=== PATIENT | male | born 1960 | race Caucasian/White ===

== ENCOUNTER 2022-03-10 11:20 | Emergency (ER) | payer OTHER ==
[~2022-03-10 11:20] MED LIST: ALLOPURINOL100 MG PO; OMEPRAZOLE40 MG PO; PRINIVIL10 MG PO
== END 2022-03-10 18:38 | disposition home or self-care (01) ==
LOC: FER 11:20
DX: Z20.822 Contact with and (suspected) exposure to COVID-19 (principal); I10 Essential (primary) hypertension; F17.290 Nicotine dependence, other tobacco product, uncomplicated
CPT/HCPCS: 99283; U0002